=== PATIENT | female | born 1985 | race African-American/Black ===

== ENCOUNTER 2022-03-02 13:11 | Emergency (ER) | payer BC, MEDICARE ==
[~2022-03-02] VITALS: Ht 157.5 cm; Wt 86.2 kg
== END 2022-03-02 14:07 | disposition home or self-care (01) ==
LOC: ER 13:17
DX: O26.893 Other specified pregnancy related conditions, third trimester (principal); R06.00 Dyspnea, unspecified; D64.9 Anemia, unspecified
CPT/HCPCS: 93005; 99283